=== PATIENT | female | born 1955 | race Caucasian/White ===

== ENCOUNTER 2025-02-14 06:01 | Day surgery (SDC) | payer MEDICARE, OTHER, SELFPAY ==
[2025-02-07 13:37] VITALS: BMI 23.0
[2025-02-14] VITALS (14 sets, daily range): BP systolic 145–176; BP diastolic 65–88; PULSE 60–86; RESP 12–21; TEMP 36.2–36.8; O2SAT 95–100; BMI 23.0
--- NOTE | 2025-02-14 | DI.RAD.S_ITS ---
PROCEDURE: XR WRIST 2V LEFT INDICATIONS: post-op TECHNIQUE: 2 views of the wrist were acquired. COMPARISON: Outside Facility, [facility], XR WRIST 3V LEFT, 02/03/2025, 13:57. FINDINGS: Bones: Overlying cast material obscures fine bony detail. Interval postsurgical changes from distal radial fracture fixation with a volar plate and screw construct. There is rastafari of normal anatomic alignment. Soft tissues: No suspicious soft tissue calcifications. IMPRESSION: Status post internal fixation of the distal radial fracture with improved alignment. Approved by: Esa Ramírez M.D. on 02/14/2025 at 9:57
[2025-02-14] MEDS: ACETAMINOPHEN 325 MG TABLET 975 MG PO (06:55)
[2025-02-14] MEDS: LACTATED RINGERS 1,000 ML 42 ML IV ×3 (06:55→10:20)
--- NOTE | 2025-02-14 07:17 | PM.PREOP ---
Pre-operative Note COVID-19 COVID-19 status: Not tested Interval Note History & Physical reviewed/Exam performed by Physician: Yes Changes to H&P: No
--- NOTE | 2025-02-14 08:13 | SUR.OPER ---
Supine on padded OR bed, head on pillow, right arm secured on padded arm boards at <90 degrees abduction, left arm resting on hand table, legs uncrossed, safety belt at thigh.
--- NOTE | 2025-02-14 09:20 | PM.OP.1 ---
Operative Date/Time/Diagnoses Date of procedure: 02/14/25 Time of procedure: 08:15 Pre-op diagnosis: left comminuted distal radius fracture and ulnar styloid fracture Post-op diagnosis: same Procedure & Clinicians Procedure: ORIF distal radius fracture Same procedure(s) as scheduled: Yes Surgeon: Penny Childs Gerontological Nurse Practitioner: Ivett Prince Anesthesia Type: General Operative Notes Findings: displaced distal radius fracture Closure Type: primary Specimen(s): none sent Applied: none Estimated Blood Loss (mL): 10 Blood products transfused: none Tourniquet time (min): 55 Procedure in detail: Procedure: 1. ORIF right distal radius fracture 2. Closed reduction percutaneous pinning DRUJ 3. Short-arm splint Same procedure(s) as scheduled: Yes Surgeon: Penny Childs Gerontological Nurse Practitioner: Ivett Prince Anesthesia Type: General Operative Notes Findings: Comminuted right displaced distal radius fracture Closure Type: primary Applied: implant(s) Estimated Blood Loss (mL): 10 Blood products transfused: none Tourniquet time (min): 55 Procedure in detail: Patient was met in the preoperative holding area. The consent was reviewed. Initials were placed on the operative site. The patient was taken back to the operating room and placed in supine position. General anesthesia was induced. A well-padded tourniquet was placed on the right upper extremity. A time-out was performed confirming the correct patient, correct procedure, correct extremity initials on the operative site. A 6 cm vertical incision was made centered over the flexor carpi radialis. Dissection was taken down to the pronator quadratus. A hockey-stick type incision was made. The fracture site was identified and cleared of debris. The fragments were then reduced. A Arthrex distal radius plate was utilized. K-wires were utilized to place the plate in adequate position. Intraoperative fluoroscopy was used to ensure adequate alignment. Next the oblong hole was utilized and the plate was slid distally to buttress the fragments. The distal screw holes were placed. I used a cortical screw initially to reduce the plate to the bone. I then placed several distal screws and 2 more proximal screws in the shaft.At the end, I replaced the distal cortical screw with a locking screw. I utilized fluoroscopy to ensure adequate reduction and alignment as well as screw placement. The wound was copiously irrigated and closed with 2-0 Vicryl and 3-0 nylon.? A volar splint was placed. An prosthetic assistant was used in this procedure for positioning fracture reduction and fixation as well as closure. A total of 10 cc of 0.25% Marcaine were utilized as a field block. The patient was awoken and taken to the PACU in stable condition all counts were correct at the end the case. Complications: none Post-operative Condition: stable Disposition: PACU
[2025-02-14] MEDS: ONDANSETRON 4 MG/2 ML INJ IV (09:46)
--- NOTE | 2025-02-14 09:54 | SUR.PHASEI ---
Since arriving in PACU, pt has received 50mcg fentanyl, 0.5mg dilaudid and 5mg oxycodone; continues to rate pain 10/10, appears uncomfortable, wincing/moaning, pt agrees to have nerve block performed which was consented prior to surgery. Awaiting Dr Prabhakar to PACU.
--- NOTE | 2025-02-14 10:20 | SUR.PHASEI ---
Block start time [1005] . Monitoring initiated and maintained throughout procedure. Oxygen and medications given by anesthesiologist. Patient remained stable throughout procedure, no adverse reactions noted. Block end time [1015].
--- NOTE | 2025-02-14 11:05 | SUR.PHASEII ---
family at beside. voids per bedpan. c/o left wrist pain after block. refuses anymore IV or po pain med due to slight nausea. sipping water, [place] applied
--- NOTE | 2025-02-14 11:24 | SUR.PHASEII ---
Repositioned for comfort. HOB raised. large belch. States some relief from nausea at this point. States is not quite ready to progress towards discharge. Daughter remains at bedside.
== END 2025-02-14 12:00 | disposition home or self-care (01) ==
PROVIDERS: PCP Physician Assistant Medical; Referring Provider Orthopaedic Surgery; Visit Provider Orthopaedic Surgery
PROC: (CPT 25574; principal; 2025-02-14 07:45)
DX: S52.592A Other fractures of lower end of left radius, initial encounter for closed fracture (principal); S52.612A Displaced fracture of left ulna styloid process, initial encounter for closed fracture; W18.30XA Fall on same level, unspecified, initial encounter; G89.18 Other acute postprocedural pain
CPT/HCPCS: 25574; 64415; 73100; C1713; J0330; J0690; J1100; J1171; J2250; J2405; J2704; J3010